=== PATIENT | female | born 1990 | race Caucasian/White ===

== ENCOUNTER 2025-01-03 14:10 | Outpatient (CLI) | payer BC | END 2025-01-03 23:59 | disposition home or self-care (01) | LOC: RAD 14:10 | PROVIDERS: ATTEND Specialist | DX: O36.80X0 Pregnancy with inconclusive fetal viability, not applicable or unspecified (principal); Z3A.00 Weeks of gestation of pregnancy not specified | CPT/HCPCS: 36415; 84702 ==

== ENCOUNTER 2025-01-05 09:04 | Outpatient (CLI) | payer BC | END 2025-01-05 23:59 | disposition home or self-care (01) | LOC: LAB 09:04 | PROVIDERS: ATTEND Specialist | DX: O36.80X0 Pregnancy with inconclusive fetal viability, not applicable or unspecified (principal); Z3A.00 Weeks of gestation of pregnancy not specified | CPT/HCPCS: 36415; 84702 ==

== ENCOUNTER 2025-01-05 09:08 | Outpatient (CLI) | payer OTHER, BC ==
--- NOTE | 2025-01-05 12:21 | RADIOLOGY REPORT ---
ULTRASOUND SOFT TISSUE HEAD AND NECK CLINICAL INDICATION: THYROID DISORDER,UNSPECIFIED,AUTOIMMUNE THYROIDITIS TECHNIQUE: Multiple real time sonographic images of the thyroid were obtained. FINDINGS: The right thyroid gland measures 4 cm. The left thyroid gland measures approximately 4 cm. The isthmus measures 0.5 cm. ACR TIRADS TI-RADS 2 colloid cysts measuring 3 mm right upper thyroid lobe, 4 mm isthmus, and 4 mm left upper thyroid lobe. IMPRESSION: TI-RADS 2 colloid cysts measuring 3 mm right upper thyroid lobe, 4 mm isthmus, and 4 mm left upper thyroid lobe. [employer] TI-RADS Categories and Recommendations (2017): TR1: 0 points, Benign, No FNA TR2: 2 points, Not suspicious, No FNA TR3: 3 points, Mildly suspicious, FNA if > or = 2.5 cm, Follow if > or = 1.5 cm TR4: 4-6 points, Moderately Suspicious, FNA if > or = 1.5 cm, Follow if > or = 1.0 cm TR5: 7+ points, Highly Suspicious, FNA if > or = 1.0 cm, Follow if > or = 0.5 cm Follow-up ultrasound guidelines: TR5: yearly for 5 years, if no growth or change in TI-RADS level TR4: at 1, 2, 3 and 5 years, if no growth or change in TI-RADS level TR3: at 1, 3 and 5 years, if no growth or change in TI-RADS level If increased but below threshold for FNA, repeat in one year. Source: ACR Thyroid Imaging, Reporting and Data System (TI-RADS): White Paper of the ACR TI-RADS Committee. Maureen et al., J Am Rachael Radiol 2017;14:587-595.
== END 2025-01-05 23:59 | disposition home or self-care (01) ==
LOC: RAD 09:08
PROVIDERS: ATTEND Nurse Practitioner Family
DX: E04.9 Nontoxic goiter, unspecified (principal); E06.3 Autoimmune thyroiditis
CPT/HCPCS: 76536

== ENCOUNTER 2025-02-13 18:22 | Emergency (ER) | payer BC ==
[~2025-02-13] VITALS: Ht 180.3 cm; Wt 103.4 kg
[2025-02-13 18:48] LABS: LEUKOCYTE ESTERASE ,URINE NEGATIVE (Neg); NITRITES, URINE NEGATIVE (Neg); OCCULT BLOOD,URINE TRACE-INTACT (Neg)
[2025-02-13 18:49] LABS: UA COLLECTION TYPE CLN CATCH MIDSTREAM
[2025-02-13 18:50] LABS: URINE HCG POSITIVE (NEG)
[2025-02-13 18:54] LABS: SQUAMOUS EPITHELIAL CELL,UR FEW /LPF (FEW)
--- NOTE | 2025-02-13 19:03 | ELECTROCARDIOGRAPH REPORT ---
[facility] Test Date: 2025-02-13 Test Time: 19:01:03 Pat Name: LAQUITA CONRAD Department: [facility] Patient ID: [id number] Room: Gender: F Clin Application Specialist: : [id number] Requested By: BASIA MOBLEY Order Number: [id number] Reading MD: Dr. Ruben Mistry Measurements Intervals [employer] Rate: 76 P: 47 OH: 210 QRS: -17 QRSD: 107 T: 24 QT: 361 QTc: 406 Interpretive Statements Sinus rhythm Prolonged OH interval Borderline left axis deviation RSR' in V1 or V2, probably normal variant Consider anterior infarct Electronically Signed On 02-14-2025 11:17:[address] Ruben Mistry Please click the below link to view image of tracing.
[2025-02-13 19:15] LABS: MEAN PLATELET VOLUME 8.3 FL (7.4-10.4); RED CELL DISTRIBUTION WIDTH 13.4 % (11.5-14.5)
--- NOTE | 2025-02-13 19:27 | Physician Documentation ---
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 Patient states she has poor diet including fat ty foods and sugary foods. She states she had similar pain in a previous with no answer for cause at that time. Resolved after . She states pain is a 4/10 radiating to the back shoulder and scapular area. She denies any vaginal discharge pain contractions however states she has been spotting today. Pain is reproducible. Denies any alcohol or drug use only m edications are progesterone and Lexapro. Denies any chest pain shortness of breath weakness dizziness diarrhea nausea vomiting fever chills. Review of systems otherwise negative. Patient has OBGYN follow-up. No other symptoms at this time. Last Menstrual Period: Jan 03, 2025 Medication Reconciliation Allergies: Coded Allergies: No Known Allergies (Unverified , 02/13/25) Scheduled Cyclobenzaprine* (Cyclobenzaprine*), 0.5 TAB PO Q8H Past Medical History Last Menstrual Period: Jan 03, 2025 Review of Systems ROS Constitutional: Negative for fever and chills. HENT: Negative for sore throat and rhinorrhea. Eyes: Negative for pain and redness. Respiratory: Negative for cough and SOB. Cardiovascular: Negative for chest pain and palpitations. Gastrointestinal: Right upper quadrant pain radiating to the scapula Genitourinary: Negative for dysuria and hematuria. Musculoskeletal: Negative for acute back pain and acute neck pain. Skin: Negative for rash and pruritus. Neurological: Negative for acute numbness or weakness. Physical Exam Vital Signs: Temperature: 97.9, Source: Temporal, Heart Rate: 87, Respiratory Rate: 15, BP: 176/104, Pulse Oximetry: 98, Weight: 103.400 Oxygen Flow Rate: 0 Physical Exam General: Awake no distress. Verbal Head: No trauma Eyes: Nl lids Nl conjunctiva. No eye discharge ENT: Mucous membranes Nl. Lips Nl. No lesions Neck: Supple. No JVD. No visible mass Resp: Rate normal. No respiratory distress. No retractions. Normal air flow. No wheezes, rhonchi, or rales. Heart: Regular rhythm. No murmur. No rub Abdomen: Soft tender to the right upper quadrant positive Calderon sign. Musc/skeletal: No calf or popliteal tenderness. No edema Skin: No rash. No petechiae. Not diaphoretic Neuro: Alert, oriented. Normal speech Progress Results/Orders Results/Orders Orders - BASIA MOBLEY MD Chest,Single View (02/13/25 18:55) Monitor (02/13/25 18:55) Saline Lock (02/13/25 18:55) Oxygen (02/13/25 18:55) PBNP (02/13/25 18:55) Hs Troponin I W Calculations (02/13/25 18:55) Hs Troponin I W Calculations (02/13/25 20:55) Hs Troponin I W Calculations (02/13/25 21:55) Ultrasound Of Abdomen (02/13/25 19:07) Completed Orders - BASIA MOBLEY MD Electrocardiogram (02/13/25 18:55) Acetaminophen 325mg Tablet (Tylenol Tabl (02/13/25 19:20) Vital Signs 02/13/25 02/13/25 02/13/25 18:25 18:42 18:50 Temp 97.9 Pulse 84 87 Resp 16 19 15 B/P (MAP) 156/78 176/104 (128) Pulse Ox 100 98 O2 Flow Rate 0 0 Laboratory Tests Test 02/13/25 18:36 02/13/25 18:57 02/13/25 19:05 Urine Specimen Description Cln catch midstream Urine Color Yellow Urine Clarity Clear Urine pH 6.0 Urine Specific [place] 1.025 Urine Protein Negative Urine Glucose (UA) Negative Urine Ketones Negative Urine Occult Blood Trace-intact Urine Nitrite Negative Urine Bilirubin Negative Urine Urobilinogen 0.2 Urine Leukocyte Esterase Negative Urine RBC 3-10 Urine WBC 0-4 Urine Squamous Epithelial Cells Few Urine Bacteria None seen Urine Culture Indicated Not ind Volume Urine Centrifuged 10 ml Urine HCG, Qualitative Positive Urine Comment White Blood Count 11.2 H Red Blood Count 4.09 L Hemoglobin 13.1 Hematocrit 38.4 Mean Corpuscular Volume 94.0 Mean Corpuscular Hemoglobin 31.9 H Mean Corpuscular Hemoglobin Concent 34.0 Red Cell Distribution Width 13.4 Platelet Count 353 Mean Platelet Volume 8.3 Neutrophils (%) (Auto) 58.4 Lymphocytes (%) (Auto) 33.8 Monocytes (%) (Auto) 6.0 Eosinophils (%) (Auto) 1.6 Basophils (%) (Auto) 0.2 Neutrophils # (Auto) 6.5 Lymphocytes # (Auto) 3.8 Monocytes # (Auto) 0.7 Eosinophils # (Auto) 0.2 Basophils # (Auto) 0.0 CBC Comment Chemistry Comments Medical Decision Making Additional information obtaine: old records, family Findings Patient was given 1 g of Tylenol for musculoskeletal pain in the anterior right rib cage. Patient has positive Calderon sign as well as reproducible pain on palpation in the intercostals so Flexeril 5 mg was given. Pain is a 4/10 at this moment we will reassess for improvement and also patient pending right upper quadrant ultrasound to rule out gallbladder disease. Bedside ultrasound showed hyperechoic wave under the gallbladder with possible thickening of the gallbladder wall and hyperechoic gallbladder wall. Will need official to verify. Also applied heat pack to area to help treat musculoskeletal pain and see if we have improvement. The ultrasound Ob also performed. Patient had just urinated and did not get a good view of bladder or uterus. Patient approximately three weeks at this time. After Tylenol and Flexeril pain is now resolved leading me to believe this is musculoskeletal in nature after earlier in the week lifting multiple heavy boxes. Flexeril sent to patient pharmacy to be taken if pain returns along with Tylenol for inflammation and muscle relaxation. Ultrasound shows no acute findings at this time. Patient feels back to baseline at this time and is now stable for discharge. Patient has good OBGYN follow-up will return symptoms continue to worsen or change in nature. Spent 7 minutes counseling on healthy diet and lifestyle changes to help avoid any biliary colic she may be having however signs symptoms and labs with imaging point more to musculoskeletal issues at this time. Nursing notes reviewed Triage Notes reviewed 3+ test used to diagnose No social issues at this time Differential diagnosis includes cholelithiasis, musculoskeletal pain, cholangitis Clinical impression is musculoskeletal pain after moving and strenuous activity Stable for discharge at this time. Differential Dx:Considerations: Cholangitis, Cholelithasis Departure Disposition: HOME / SELF CARE / HOMELESS Impression: Primary Impression: Abdominal pain Condition: Stable Discharge Instructions: Muscle Pain, Adult, Abdominal Pain, Women, Abdominal Pain During Referrals: NO PRIMARY CARE PROVIDER (PCP) Prescriptions Cyclobenzaprine* (Cyclobenzaprine*) 10 Mg Tablet 0.5 TAB PO Q8H for muscle spasms for 3 Days, #10 TAB 0 Refills Prov: BASIA MOBLEY MD 02/13/25 Education Educated: Patient, Family Educated regarding: diagnosis, treatment, prognosis, need for follow up Signature Scribe Signature: No scribe Attestation: Signed by Dr. Mobley on February 16, 2025 3:55 p.m. BASIA MOBLEY MD Feb 13, 2025 19:27
[2025-02-13 19:31] LABS: CREATININE 0.74 MG/DL (0.40-0.90); TOTAL CARBON DIOXIDE 25.1 MMOL/L (24-32); eCRCL 122 ML/MIN; eGFR > 90 ML/MIN
[2025-02-13 19:54] LABS: PRO BRAIN NATRIURETIC PEPTIDE < 30 PG/ML (0-125)
--- NOTE | 2025-02-13 20:38 | RADIOLOGY REPORT ---
PROCEDURE: US ULTRASOUND OF ABDOMEN [facility] Study Date and Requested Time: 02/13/2025 07:47 PM History: RUQ PAIN COMPARISON: None TECHNIQUE: Multiple high resolution cyr-scale images obtained of the right upper quadrant of the abdomen with color Doppler for evaluation of blood flow and vascularity as indicated. FINDINGS: Liver normal in size, measuring 15 cm in length, with increased echogenicity and normal contours. No evidence of focal hepatic lesions, intrahepatic or extrahepatic ductal dilatation. Common bile duct measures 0.3 cm in diameter. Gallbladder unremarkable with no evidence of abnormal wall thickening, gallstones, biliary sludge, or pericholecystic fluid. Positive sonographic Calderon's sign. Pancreas only partially visualized due to overlying bowel gas with the visualized pancreas unremarkable. Right kidney measures 12 cm in length, with normal contours, echotexture, and cortical thickness. No evidence of hydronephrosis, calculi, cystic or solid renal lesions. Partially visualized inferior vena cava unremarkable. IMPRESSION: Unremarkable sonographic study of the right upper quadrant of the abdomen. Nonspecific positive sonographic Calderon's sign in the absence of gallbladder abnormality on ultrasound.
[2025-02-13] MEDS ORDERED: CYCL-1 PO (21:15)
[2025-02-13 21:20] VITALS: BP 127/80; PULSE 72; RESP 16; TEMP 97.9; O2SAT 98
== END 2025-02-13 21:21 | disposition home or self-care (01) ==
LOC: ER 18:23
DX: R10.11 Right upper quadrant pain (principal); N93.8 Other specified abnormal uterine and vaginal bleeding
CPT/HCPCS: 36415; 76700; 80053; 81001; 81025; 83690; 83880; 84484; 84702; 85025; 93005; 99284; A6449